=== PATIENT | male | born 1960 | race African-American/Black ===

== ENCOUNTER 2024-04-12 14:43 | Inpatient (IN) | payer BC ==
[~2024-04-12] VITALS: Ht 182.9 cm; Wt 100.7 kg
[2024-04-12] MEDS: SODIUM CHLORIDE 0.9% 1,000 ML IV ONE (15:45)
[2024-04-12 15:51] LABS: BASOPHILS % 0.5 % (0.0-2.0); HEMATOCRIT. 39.6 % (42.0-52.0); LYMPHOCYTES % 20.7 % (20.0-50.0); MEAN CORPUSCULAR HEMOGLOBIN 30.5 pg (28.0-32.0); MEAN CORPUSCULAR HGB CONC 32.9 g/dL (31.0-37.0); MEAN CORPUSCULAR VOLUME 92.8 fL (80.0-94.0); MEAN PLATELET VOLUME 8.1 fl (7.4-10.4); NEUTROPHILS % 66.8 % (40.0-76.0); PLATELET 234 x1000/uL (130-400); RED BLOOD CELL COUNT 4.27 mill/uL (4.7-6.1); RED CELL DISTRIBUTION WIDTH 13.2 % (11.6-14.6); WHITE BLOOD COUNT 9.7 x1000/uL (4.5-11.0)
[2024-04-12 15:57] LABS: CHLORIDE 110 mEq/L (98-107); POTASSIUM 3.4 mEq/L (3.5-5.1); SODIUM 141 mEq/L (136-145)
[2024-04-12 15:58] LABS: CALCIUM 8.8 mg/dL (8.7-10.4); CARBON DIOXIDE 26 mEq/L (21-32)
[2024-04-12 16:03] LABS: CREATININE 1.1 mg/dL (0.6-1.3); GLUCOSE 100 mg/dL (70-105); UREA NITROGEN BLOOD 13 mg/dL (9-23)
[2024-04-12 16:09] LABS: PROTHROMBIN TIME 10.9 sec (9.6-11.0)
[2024-04-12 16:12] LABS: CLARITY URINE CLOUDY (CLEAR); COLOR URINE DARK YELLOW (YELLOW); GLUCOSE URINE NEGATIVE (NEGATIVE); KETONES URINE TRACE (NEGATIVE); LEUKOCYTE ESTERASE URINE 1+ (NEGATIVE); NITRITE URINE NEGATIVE (NEGATIVE); OCCULT BLOOD URINE NEGATIVE (NEGATIVE); PH URINE 7.5 (4.5-8.0); PROTEIN URINE 2+ (NEGATIVE); SPECIFIC GRAVITY URINE 1.028 (1.005-1.030)
[2024-04-12 16:18] LABS: ETHANOL BLOOD < 10 mg/dL (<10); TROPONIN I HIGH SENSITIVITY < 4 ng/L (3.0-53)
[2024-04-12 16:19] LABS: *AMPHETAMINES SCREEN URINE NEGATIVE (NEGATIVE); *BARBITURATES SCREEN URINE NEGATIVE (NEGATIVE); *BENZODIAZEPINES SCREEN URINE NEGATIVE (NEGATIVE); *COCAINE SCREEN URINE NEGATIVE (NEGATIVE); CANNABINOID URINE SCREEN PRESUMPTIVE POSITIVE (NEGATIVE); METHADONE URINE SCREEN NEGATIVE (NEGATIVE); OPIATES URINE SCREEN PRESUMPTIVE POSITIVE (NEGATIVE); PHENCYCLIDINE URINE SCREEN NEGATIVE (NEGATIVE)
[2024-04-12 16:20] LABS: ECSTASY MDMA SCREEN URINE NEGATIVE (NEGATIVE)
[2024-04-12 16:52] LABS: RBC URINE 0-2 /hpf (0-2); SQUAMOUS EPITHELIAL CELL URINE 2+ /lpf (RARE/1+)
[2024-04-12 16:53] LABS: BACTERIA URINE 2+
[2024-04-12] MEDS: CEFTRIAXONE 1GM/50ML 50 ML IV ONE (19:31)
[2024-04-12 20:11] LABS: LACTIC ACID 2.1 mmol/L (0.4-2.0)
[2024-04-12 20:29] LABS: TROPONIN I HIGH SENSITIVITY < 4 ng/L (3.0-53)
[2024-04-12] MEDS: AZITHROMYCIN 500MG/250ML 250 ML IV SCH (20:30)
[2024-04-12] MEDS ORDERED: GUAIFENESIN 200MG/10ML SUGAR FREE UDC PO PRN (21:00)
[2024-04-12] MEDS ORDERED: IPRATROPIUM/ALBUTEROL 0.5-3(2.5)MG/3ML NEB HHN PRN (21:00)
[2024-04-12] MEDS ORDERED: DOCUSATE SODIUM 100MG CAPSULE PO PRN (21:00)
[2024-04-12] MEDS ORDERED: ONDANSETRON HCL 4MG/2ML INJ IV PRN (21:00)
[2024-04-12] MEDS ORDERED: MAGNESIUM/ALUMINUM HYDROXIDE/SIMETHICONE 30ML UDC PO PRN (21:00)
[2024-04-12] MEDS ORDERED: NA PHOS,M-B/NA PHOS,DI-BA ENEMA 118ML PR PRN (21:00)
[2024-04-12] MEDS ORDERED: ACETAMINOPHEN 325MG TABLET PO PRN ×2 (21:00)
[2024-04-12] MEDS ORDERED: CLONIDINE 0.1MG TABLET PO PRN (21:00)
[2024-04-12] MEDS: SODIUM CHLORIDE 0.45% 1,000 ML IV SCH (21:56)
[2024-04-13 00:35] VITALS: BP 144/54; PULSE 72; RESP 18; TEMP 36.5848
[2024-04-13] MEDS ORDERED: ATOR-2 MT (01:43)
[2024-04-13] MEDS ORDERED: KETOROLAC 15MG/ML VIAL IV PRN (02:30)
[2024-04-13 04:00] VITALS: BP 140/88; PULSE 74; RESP 16; TEMP 36.55848; O2SAT 95
[2024-04-13] MEDS: GABAPENTIN 300MG CAPSULE PO SCH (06:01)
[2024-04-13 07:14] LABS: CHLORIDE 109 mEq/L (98-107); POTASSIUM 3.8 mEq/L (3.5-5.1); SODIUM 141 mEq/L (136-145)
[2024-04-13 07:15] LABS: CALCIUM 9.5 mg/dL (8.7-10.4); CARBON DIOXIDE 25 mEq/L (21-32)
[2024-04-13 07:20] LABS: GLUCOSE 128 mg/dL (70-105)
[2024-04-13 07:21] LABS: LDL CHOLESTEROL 101 mg/dL (5-100); TRIGLYCERIDE 104 mg/dL (0-150); UREA NITROGEN BLOOD 14 mg/dL (9-23)
[2024-04-13 07:22] LABS: ALANINE AMINOTRANSFERASE 30 IU/L (10-49); ALBUMIN 4.3 g/dL (3.2-4.8); ASPARTATE AMINOTRANSFERASE 29 IU/L (<34); CHOLESTEROL 155 mg/dL (<200); CREATINE KINASE 206 IU/L (46-171); TROPONIN I HIGH SENSITIVITY 4 ng/L (3.0-53)
[2024-04-13 07:23] LABS: BILIRUBIN DIRECT 0.2 mg/dL (<=3.0); BILIRUBIN TOTAL 0.7 mg/dL (0.1-1.0); HDL CHOLESTEROL 36 mg/dL (>55); PROTEIN TOTAL 6.7 g/dL (6.0-8.3)
[2024-04-13 07:25] LABS: THYROID STIMULATING HORMONE 0.65 uIU/mL (0.55-4.78)
[2024-04-13 07:59] VITALS: BP 131/65; PULSE 76; RESP 20; TEMP 37.00296; O2SAT 94
[2024-04-13] MEDS: PANTOPRAZOLE 40MG DR TABLET PO SCH (08:16)
[2024-04-13 08:19] LABS: BASOPHILS % 0.4 % (0.0-2.0); EOSINOPHILS % 2.7 % (0.0-5.0); HEMATOCRIT. 41.2 % (42.0-52.0); HEMOGLOBIN. 13.7 g/dL (14.0-18.0); LYMPHOCYTES % 17.9 % (20.0-50.0); MEAN CORPUSCULAR HEMOGLOBIN 30.5 pg (28.0-32.0); MEAN CORPUSCULAR HGB CONC 33.2 g/dL (31.0-37.0); MEAN CORPUSCULAR VOLUME 91.9 fL (80.0-94.0); MEAN PLATELET VOLUME 8.7 fl (7.4-10.4); MONOCYTES % 6.4 % (2.0-8.0); NEUTROPHILS % 72.6 % (40.0-76.0); PLATELET 256 x1000/uL (130-400); RED BLOOD CELL COUNT 4.49 mill/uL (4.7-6.1); RED CELL DISTRIBUTION WIDTH 13.7 % (11.6-14.6); WHITE BLOOD COUNT 10.5 x1000/uL (4.5-11.0)
[2024-04-13] MEDS: NICOTINE 7MG PATCH TD SCH (11:10)
[2024-04-13 11:42] VITALS: BP 120/58; PULSE 67; RESP 18; TEMP 37.00296; O2SAT 100
[2024-04-13 12:26] VITALS: PULSE 85; RESP 20; O2SAT 95
[2024-04-13] MEDS: BUDESONIDE 0.5MG/2ML NEB HHN SCH (12:26)
[2024-04-13] MEDS: IPRATROPIUM/ALBUTEROL 0.5-3(2.5)MG/3ML NEB HHN SCH (12:26)
[2024-04-13] MEDS ORDERED: HYDROCODONE/ACETAMINOPHEN 10/325MG TABLET PO PRN (13:30)
[2024-04-13] MEDS ORDERED: NALOXONE HCL 0.4MG/ML VIAL IV PRN (13:45)
[2024-04-13 15:33] VITALS: BP 111/51; PULSE 67; RESP 20; TEMP 37.16964; O2SAT 93
[2024-04-13] MEDS: CEFTRIAXONE SODIUM 1G VIAL IM NR (16:29)
== END 2024-04-13 17:48 | disposition left against medical advice (07) | DRG 312 ==
LOC: ER 14:56 → 5WST 19:00 → 7WST 04-13 00:47
PROVIDERS: ADMIT Internal Medicine; ATTEND Internal Medicine
DX: I95.2 Hypotension due to drugs (principal); M62.82 Rhabdomyolysis; N39.0 Urinary tract infection, site not specified; R00.1 Bradycardia, unspecified; R55 Syncope and collapse; E78.00 Pure hypercholesterolemia, unspecified; J44.9 Chronic obstructive pulmonary disease, unspecified; G89.29 Other chronic pain; T50.995A Adverse effect of other drugs, medicaments and biological substances, initial encounter; Z53.29 Procedure and treatment not carried out because of patient's decision for other reasons; S05.11XA Contusion of eyeball and orbital tissues, right eye, initial encounter; F11.10 Opioid abuse, uncomplicated; F17.210 Nicotine dependence, cigarettes, uncomplicated; Z79.899 Other long term (current) drug therapy; V89.2XXA Person injured in unspecified motor-vehicle accident, traffic, initial encounter; Y93.89 Activity, other specified; Y92.410 Unspecified street and highway as the place of occurrence of the external cause; Y99.8 Other external cause status; Y92.89 Other specified places as the place of occurrence of the external cause
CPT/HCPCS: 36415; 71045; 80048; 80061; 80076; 80305; 80320; 81003; 82550; 83605; 83880; 84145; 84443; 84484; 85025; 87015; 87045; 87070; 87427; 87449; 93005; 94640; 99285; J0456; J0696; J7030; J7626; G0480